=== PATIENT | male | born 1960 | race Caucasian/White ===

== ENCOUNTER 2016-07-26 00:03 | Emergency (ER) | payer MEDICARE, OTHER ==
[~2016-07-26] VITALS: Ht 185.4 cm; Wt 97.5 kg
[2016-07-26 00:49] LABS: HEMOGLOBIN 11.9 gm/dl (14.0-17.5); RED BLOOD COUNT 3.8 M/UL (4.20-5.50)
[2016-07-26 01:09] LABS: BUN/CREATININE RATIO 16 (0-10)
== END 2016-07-26 14:15 | disposition home or self-care (01) ==
LOC: ER1 00:03 → ZEROF 05:01 → ER1 05:01
PROVIDERS: Student in an Organized Health Care Education/Training Program
DX: R07.89 Other chest pain (principal); I25.10 Atherosclerotic heart disease of native coronary artery without angina pectoris; I25.2 Old myocardial infarction; F12.90 Cannabis use, unspecified, uncomplicated; E78.5 Hyperlipidemia, unspecified; I10 Essential (primary) hypertension; F17.210 Nicotine dependence, cigarettes, uncomplicated; Z91.14 Patient's other noncompliance with medication regimen; Z95.5 Presence of coronary angioplasty implant and graft; Z79.82 Long term (current) use of aspirin; Z79.899 Other long term (current) drug therapy
CPT/HCPCS: ECHO; 71010; 78452; 80053; 80061; 82550; 82553; 83874; 84443; 84484; 85025; 93005; 93017; 93306; 99285; A9502; J2785

== ENCOUNTER → 2016-08-13 | Outpatient (CLI) | payer MEDICARE, OTHER | LOC: RAD 12:13 | DX: M54.2 Cervicalgia (principal); M54.9 Dorsalgia, unspecified; R05 Cough; M47.814 Spondylosis without myelopathy or radiculopathy, thoracic region; M25.78 Osteophyte, vertebrae; M47.812 Spondylosis without myelopathy or radiculopathy, cervical region; M43.12 Spondylolisthesis, cervical region; M51.34 Other intervertebral disc degeneration, thoracic region | CPT/HCPCS: 71020; 72050; 72072; 72110 ==